=== PATIENT | female | born 1985 | race Caucasian/White ===

== ENCOUNTER 2017-03-27 18:39 | Inpatient (IN) | payer BC ==
[2017-03-27] MEDS ORDERED: Lactated Ringers 500 ML IV ONE (21:32)
[2017-03-27] MEDS ORDERED: Acetaminophen 325 MG Tab PO PRN (21:32)
[2017-03-27] MEDS ORDERED: Misoprostol 400 MCG (4 X 100 MCG TAB) RECTAL PRN (21:32)
[2017-03-27] MEDS ORDERED: Lidocaine 1% 30 ML SDV INJECT PRN (21:32)
[2017-03-27] MEDS ORDERED: Carboprost Tromethamine 250 MCG/1 ML Amp IM PRN (21:32)
[2017-03-27] MEDS ORDERED: Ondansetron 4 MG/2 ML SDV IV PRN (21:32)
[2017-03-27] MEDS ORDERED: Sodium Chloride 0.9% 10 ML Syringe FLUSH PRN (21:32)
[2017-03-27] MEDS ORDERED: Methylergonovine 0.2 MG/1 ML Amp IM PRN (21:32)
[2017-03-27] MEDS ORDERED: Oxytocin/Normal Saline 30 UNIT/500 ML BAG IV SCH (21:45)
[2017-03-28] MEDS: Lactated Ringers 1,000 ML IV SCH ×6 (01:57→22:30)
[2017-03-28] MEDS ORDERED: fentaNYL 100 MCG/2 ML SDV IVPUSH ONE (04:12)
--- NOTE | 2017-03-28 05:46 | HP ---
HISTORY OF PRESENT ILLNESS: This patient is a very pleasant 31-year-old 1, para 0 patient who has an JUSTIN of 03/27/2017, and she is at 40 weeks' gestation when she enters the hospital for observation for possible early labor. She did come in early in the evening on 03/27/2017 with contractions about every 3 to 4 minutes, mostly of mild quality. Her bag of lira was intact. heart tones were category 1. The contractions did appear to gradually get stronger, and her cervix was 3 cm dilated, 80% effaced, and vertex at -2 station on the initial examination by the nurses. The patient did dilate a bit further a couple of hours later and was up to 4 cm dilated. Her contractions were a bit closer and stronger, and it was felt that the patient was in true active labor, and she was admitted. The patient has done well through the night, although when she made it to 5 cm of dilatation with her bag of lira intact, she was at this level for approximately 2-1/2 to 3 hours. I did evaluate her and perform history and physical and amniotomy at 3:45 this morning on 03/28/2017. My repeat cervical examination at that time showed her to still be at 5 to possibly 5+ cm dilated with the vertex at 0 station and the bag of lira intact and 100% effaced. heart tones remained at category 1. Amniotomy was performed. This does give a fair amount of fluid, and it does appear to have a brown color, which may suggest old dark meconium possibly. There are nice accelerations of the heart tones with scalp stimulation. Also as it pertains to her course, it has been quite uncomplicated. Her blood type is O negative, and she is GBS negative. Please see the EHR for the remainder of her record. PAST MEDICAL HISTORY: She denies any knowledge of heart, lung, liver, or kidney disease. ALLERGIES: She does report many years ago as a very young girl that she may have had a rash to ampicillin and penicillins. MEDICATIONS: At present, vitamins. PREVIOUS SURGERY: None. FAMILY HISTORY: Noncontributory. SOCIAL HISTORY: She is and here with her magui. She is a nonsmoker and does not use alcohol. PHYSICAL EXAMINATION: Vital Signs: Admission blood pressure was 132/84, pulse 78. HEENT: The sclerae are nonicteric. Lungs: Clear to A. Heart: Regular rhythm without murmur. Abdomen: Gravid with estimated weight 7 pounds 12 ounces. heart tones remain category 1. Cervix: Cervical examination as described above was 5 to 5+ cm dilated with vertex at 0 station and 100% effacement when the amniotomy was done between 3:45 and 4:00 this morning and brown, old dark meconium is seen. heart tones remain category 1. Clinical pelvimetry suggests some narrowing of the pubic arch and suggestion of borderline pelvis at the mid plane and the outlet. Extremities: Negative. Neurologic: Grossly intact. IMPRESSION: We have had a thorough discussion with the patient and her . Amniotomy has been performed to see if we can shorten her labor and see further progress of labor. We will watch her course of progress of labor very closely. I do anticipate spontaneous vaginal delivery, but we will keep in mind the slight possibility of future section depending upon her clinical course of labor. All of their questions have been answered. Please see the admission laboratory data. [facility] /[id number]
[2017-03-28] MEDS ORDERED: fentaNYL 100 MCG/2 ML SDV ONE (07:03)
--- NOTE | 2017-03-28 07:28 | PCM.SN ---
- Free Text/Narrative Note: Intrathecal. Sitting position, sterile prep and drape. 1 % lidocaine w bicarb for skinwheal to L2 L3 interspace. Introducer, 24 ga pencan x 1. Pos CSF, neg heme, neg parasthesia. Epi wash, 20 mcg PF sufenta, 30 mcg pf fentanyl, o.4 ml pf ns and 6 mg of 0.75% pf bupivacaine injected after CSF aspiration. Pt to R lateral position. Procedure time 0705 to 49312
[2017-03-28] MEDS ORDERED: Oxytocin/Normal Saline 60 UNIT/1,000 ML BAG ONE (09:01)
[2017-03-28] MEDS ORDERED: Citric Acid/Sodium Citrate Solution 30 ML Cup PO ONE (09:02)
[2017-03-28] MEDS ORDERED: Rocuronium 50 MG/5 ML Vial ONE (09:03)
[2017-03-28] MEDS ORDERED: Succinylcholine 200 MG/10 ML MDV ONE (09:03)
[2017-03-28] MEDS: ceFAZolin 2 GM in Premix Bag 1 BAG IV ONE ×2 (09:16→23:17)
[2017-03-28] MEDS ORDERED: Bupivacaine 0.5% 10 ML SDV ONE (09:43)
[2017-03-28] MEDS ORDERED: Bupivacaine 0.5% 10 ML SDV INJECT ONE (10:19)
[2017-03-28] MEDS ORDERED: Ketorolac 30 MG/ML SDV ONE (10:44)
[2017-03-28] MEDS ORDERED: Dexamethasone 4 MG/ML SDV ONE (10:44)
[2017-03-28] MEDS ORDERED: Ondansetron 4 MG/2 ML SDV ONE (10:44)
[2017-03-28] MEDS ORDERED: Misoprostol 400 MCG (4 X 100 MCG TAB) RECTAL PRN (13:12)
[2017-03-28] MEDS ORDERED: Methylergonovine 0.2 MG/1 ML Amp IM PRN (13:12)
[2017-03-28] MEDS ORDERED: Carboprost Tromethamine 250 MCG/1 ML Amp IM ONE (13:12)
[2017-03-28] MEDS ORDERED: ePHEDrine 50 MG/ML SDV IVPUSH PRN (13:12)
[2017-03-28] MEDS ORDERED: Acetaminophen 325 MG Tab PO PRN (13:12)
[2017-03-28] MEDS ORDERED: diphenhydrAMINE 50 MG/ML SDV IVPUSH PRN (13:12)
[2017-03-28] MEDS ORDERED: Acetaminophen/oxyCODONE 325-5 MG Tab PO PRN (13:12)
[2017-03-28] MEDS ORDERED: Naloxone 2 MG/2 ML Syringe IVPUSH PRN (13:12)
[2017-03-28] MEDS ORDERED: Ondansetron 4 MG/2 ML SDV IV PRN (13:12)
[2017-03-28] MEDS ORDERED: Lactated Ringers 1,000 ML IV SCH (13:15)
[2017-03-28] MEDS: Ketorolac 30 MG/ML SDV IVPUSH SCH ×2 (16:25→22:32)
[2017-03-28] MEDS: Simethicone 80 MG Tab.Chew PO PRN (16:31)
[2017-03-28] MEDS: Docusate Sodium 100 MG Cap PO PRN (16:31)
[2017-03-29] MEDS: Ketorolac 30 MG/ML SDV IVPUSH SCH (04:42)
[2017-03-29] MEDS: Simethicone 80 MG Tab.Chew PO PRN ×3 (08:02→21:46)
[2017-03-29] MEDS: Docusate Sodium 100 MG Cap PO PRN ×2 (08:02→21:45)
[2017-03-29] MEDS: Prenatal Multivitamin with Calcium/Folic Acid/Iron Tab PO SCH ×2 (08:02→08:03)
--- NOTE | 2017-03-29 09:19 | OR ---
DATE: 03/28/2017 PREOPERATIVE DIAGNOSIS: Term with non-reassuring heart tone pattern and borderline pelvis. OPERATION PERFORMED: Primary section, low transverse, and biopsy of left ovarian lesion. POSTOPERATIVE DIAGNOSIS: Term with non-reassuring heart tone pattern and borderline pelvis with apparent left ovarian lesion. BRIDGE INSPECTOR SURGEON: Gregoria Llanos MD COMPLICATIONS: None. ESTIMATED BLOOD LOSS: 700 mL of blood and fluid. The patient also is known to have meconium-stained fluid. DESCRIPTION: The patient was thoroughly counseled as we discussed the recommendation for section. The goals and the reasons for the procedure were thoroughly discussed with the patient, and all of her questions were answered. She and her significant other, Tres, did agree to and consent to the procedure. We did thoroughly discuss with them the slight possibility of complications and adverse outcomes with any operative procedure of course. The patient had done well during the course of her labor, although during a period of about 30 to 45 minutes, she began to have some more variable decelerations. These variable deceleration did progressively worsen, and about 4 minutes after she started pushing, they became more pronounced, and the recommendation was made to proceed with stat section. Some of the heart tones went down into the 70 range and several of them were prolonged. Then, there was recovery back up into the 110 and one teens range at times. Moderate variability was present. The patient was completely dilated, but with the vertex not going below +2 station, and the baby appeared to possibly be occiput posterior. In the operating room, heart tones were documented 2 different times by the nurses before we did the expedited prep of the abdomen. Anesthesia was able to perform expediently a quick spinal anesthesia. The patient's prep was expedited as mentioned above, and then a Pfannenstiel incision was made in the skin. This was carried down through the deeper layers with a clean knife and the peritoneum was now entered in the usual fashion. The bladder flap was developed with the use of sharp and blunt dissection. At this time, a low transverse uterine incision was made with the bandage scissors, and a viable male was in the occiput posterior position, and I did see a loop of cord between the baby's face and the uterine wall where evidently compression was taking place. The baby's head was brought up from rather deep in the pelvis and immediately suctioned upon delivery because of the meconium-stained fluid. This baby boy had good scores of 8 and 9 and the weight was later reported as 7 pounds and 13.8 ounces. He had good muscle tone and good color also at delivery of course. A segment of cord blood was obtained for pH testing. After the baby was delivered, the placenta was manually delivered from the uterine cavity in the uterine cavity was carefully wiped clean with moist laparotomy sponges. The first layer of the uterus was closed with 0 Vicryl continuous interlocking suturing. A second Lembert imbricating layer was now placed on top of this. This gave adequate hemostasis. The right tube and ovary had a normal appearance. On the left side, however, an apparent enlarged ovary or ovarian cystic lesion was identified. This measured 7 cm x 4.5 to 5 cm in dimensions. This was a smooth lesion that was somewhat indurated and hard. There were not any papillary excrescences or nodules or seeding on the smooth surface of the lesion. Also, the parietal peritoneal surfaces were closely inspected, and there was not any seeding or implants on the parietal peritoneum in the pelvic cavity, including the left pelvic gutter and the right pelvic gutter are negative. Also, there is no seeding or lesions whatsoever on the anterior parietal peritoneum. The omentum is also closely inspected until found to be totally within normal limits. The liver edge was also palpated and was smooth and no induration or masses. The right kidney was palpated and found to be normal in its retroperitoneal position. No evidence of any seedlings or implants were found; therefore, anywhere in the abdominal cavity or pelvic cavity. I do suspect that this is a benign lesion of apparently the left ovary, possibly this could represent a luteoma of the ovary or possibly a benign cystic teratoma or possibly a large fibroma of the ovary. Further postoperative testing and evaluation will be done of course. We did take a wedge resection biopsy of this lesion in the left adnexal area. This will be submitted to pathology of course. The lesion was hemostatic and did not need any suturing in the area that we biopsied. Please see the intraoperative photographs that we have also taken of this lesion. Now, the pelvic cavity was copiously irrigated with normal saline and carefully suctioned dry. The primary section site, and incision was closely inspected and remained hemostatic. The bladder flap peritoneum re-approximates nicely on its own without suturing. Now, all of the lap pads were removed, and lap pad count was reported as normal. The peritoneum was reapproximated with 2-0 chromic continuous suturing. Now, the rectus fascia was closed with 0 Vicryl continuous suturing using a separate strand of suture for the left and right sides of the incision respectively. The subcutaneous space was irrigated at this time and then sutured with 3-0 plain gut. The subcutaneous space was now infiltrated with 0.5% Marcaine using 10 mL for extra analgesic support. Abbey were now applied to the skin. The needle, sponge, and instrument count was reported as correct. Estimated blood and fluid loss from the procedure was approximately 700 mL. Kilpatrick catheter was draining clear urine at all times. The patient tolerated the procedure well and went to the recovery room in good condition. [facility] /[id number]
--- NOTE | 2017-03-29 09:44 | PCM.SN ---
- Free Text/Narrative Note: Post op. Pt alert and oriented. VSS. Pt denies [place], backache, parasthesias or nausea. Tolerating PO well, Pain controlled. Ambulating w/o difficulty. No anesthesia concerns noted.
[2017-03-29] MEDS: Acetaminophen/oxyCODONE 325-5 MG Tab PO PRN ×2 (11:40→16:24)
[2017-03-29] MEDS: Ibuprofen 800 MG Tab PO PRN ×2 (13:20→21:46)
[2017-03-29] MEDS ORDERED: fentaNYL 100 MCG/2 ML SDV ITHECAL ONE (13:41)
[2017-03-29] MEDS ORDERED: Ondansetron 4 MG/2 ML SDV IV ONE (13:42)
[2017-03-29] MEDS ORDERED: Bupivacaine 0.5% 10 ML SDV INJECT ONE (13:42)
[2017-03-29] MEDS ORDERED: Morphine PF 1 MG/ML Amp IVPUSH ONE (13:42)
[2017-03-29] MEDS ORDERED: fentaNYL 100 MCG/2 ML SDV IV ONE (13:42)
[2017-03-29] MEDS ORDERED: ePHEDrine 50 MG/ML SDV IV ONE (13:42)
[2017-03-29] MEDS ORDERED: Dexamethasone 4 MG/ML SDV IV ONE (13:42)
[2017-03-29] MEDS ORDERED: Oxytocin/Normal Saline 30 UNIT/500 ML BAG IV ONE (13:42)
[2017-03-29] MEDS ORDERED: Ketorolac 30 MG/ML SDV IVPUSH ONE (13:42)
[2017-03-29] MEDS ORDERED: Lactated Ringers 1,000 ML IV ONE (13:42)
[2017-03-30] MEDS: Acetaminophen/oxyCODONE 325-5 MG Tab PO PRN ×5 (01:42→23:22)
[2017-03-30] MEDS: Docusate Sodium 100 MG Cap PO PRN ×2 (08:25→23:22)
[2017-03-30] MEDS: Prenatal Multivitamin with Calcium/Folic Acid/Iron Tab PO SCH (08:25)
[2017-03-30] MEDS: Ibuprofen 800 MG Tab PO PRN ×3 (08:25→23:38)
[2017-03-30] MEDS: Simethicone 80 MG Tab.Chew PO PRN (23:22)
[2017-03-31] MEDS: Acetaminophen/oxyCODONE 325-5 MG Tab PO PRN ×2 (04:42→09:56)
[2017-03-31] MEDS: Docusate Sodium 100 MG Cap PO PRN (08:03)
[2017-03-31] MEDS: Ibuprofen 800 MG Tab PO PRN (08:03)
[2017-03-31] MEDS: Prenatal Multivitamin with Calcium/Folic Acid/Iron Tab PO SCH (08:03)
--- NOTE | 2017-04-01 07:08 | PN ---
DATE: 03/29/2017 SUBJECTIVE: Tracey is doing well today. She did rest fairly well last night. She denies any unusual pain. She is tolerating diet this morning. She also has been ambulating earlier. In general she is doing very well. OBJECTIVE: Vital Signs: All within normal limits including afebrile. Her hemoglobin is 9.8 this morning. Her WBC is still moderately elevated up to 18,200. She did have a WBC in the range of 16,000 yesterday and we have attributed that to the stress of her labor and the stress of surgery. There was not any foul lochia drainage. Gastrointestinal: Her abdomen is soft and only slightly tender near the incisional area. The dressing is dry. There is negative CVA tenderness. Extremities: Reveal negative Homans sign and there is not any calf or thigh tenderness palpated. ASSESSMENT: Stable course post section. We did review everything again from the operative report with her this morning. Her left adnexal lesion path report is pending. Quite possibly this could represent left ovarian lesion, either benign cystic teratoma, luteoma, fibroma, or possibly if it is not ovarian tissue, it could be leiomyoma. PLAN: She will gradually increase her ambulation as tolerated and also gradually increase her fluid intake and nutritional intake. Her hemoglobin is at 9.8, and we will begin her on oral iron. I will thoroughly discuss her with Dr. Dukes who is on-call and will be rounding on her this weekend and likely discharging her on Saturday. I will be happy to dictate all of the essentials for her discharge summary when I am back on Saturday, her pathology report is still pending. I also gave her the routine post instructions today. Possibly, Dr. Dukes will give her prescription for Percocet, etc., if she wishes on the day of discharge. I note that the baby has an appointment to see Dr. Cage on 04/02. Possibly Dr. Cage would also be removing the guille and applying Steri-Strips at that time. If Dr. Cage does not choose to remove the guille and Steri-Strips, I will be very happy to remove them when I am also in the office on Saturday, 04/02. At any rate, even if Dr. Cage does see the patient, I will be happy to visit with the patient and see her as well. [facility] /[id number]
--- NOTE | 2017-04-01 09:31 | PN ---
DATE: 03/31/2017 Postoperative day #3. SUBJECTIVE: The patient is tolerating p.o., ambulating, urinating, passing flatus, and requesting to discharge. OBJECTIVE: Vital Signs: Last set of vitals updated and listed in chart include a temperature of 97.5, heart rate 72, blood pressure 103/66, and respiratory rate 16. Lungs: Clear to auscultation bilaterally. Heart: S1 and S2. Regular rate and rhythm. Abdomen: Firm uterus -1 below umbilicus. Skin: Incision appears dry and intact with guille intact. Extremities: Trace pedal edema. No calf pain. LABORATORY DATA: Labs, on 03/29, revealed a white cell count 18.2, hemoglobin 9.8, and platelets 195 with maternal bleed being negative. ASSESSMENT: Postoperative day #3, status post primary low transverse due to nonreassuring heart tones, complicated by left adnexal mass with biopsies taken. Dr. Saunders is going to follow with this. PLAN: I did discuss with patient the discharge instructions. She is going to follow up on Saturday, the , with Dr. Cage, with her baby. I did discuss with her in the interim the reasons to return or go to the emergency room as well as the importance of followup and ramifications of not doing so, and reasons to return or go to the emergency room with regard to her baby. Dr. Saunders will be completing the discharge summary. Please see his orders for further details. Discharge evaluation noted as above. [facility] /[id number]
--- NOTE | 2017-04-01 09:41 | PN ---
DATE: 03/30/2017 SUBJECTIVE: The patient has been tolerating p.o., ambulating, urinating, and passing flatus. OBJECTIVE: Vital Signs: Last set of vitals are updated and listed in the chart; temperature 97.7, heart rate 68, blood pressure 98/46, respiratory rate 16. Lungs: Clear to auscultation bilaterally. Heart: S1 and S2. Regular rate and rhythm. Abdomen: Firm uterus at approximately umbilicus. Extremities: Trace pedal edema. No calf pain. ASSESSMENT: 1. Postoperative day #2, status post primary low transverse with noted left adnexal mass biopsy taken by Dr. Saunders and will be followed closely thereafter. 2. Anemia of acute blood loss. Hemoglobin dropping from 11.3 to 9.8. Yesterday, her was at hemoglobin 9.8. We will continue to follow clinically and closely. The patient is asymptomatic. PLAN: I did discuss with patient the potential discharge tomorrow, and we will follow closely. The patient understands and agrees the above treatment plan. [facility] /[id number]
--- NOTE | 2017-04-01 10:14 | PN ---
DATE: 03/31/2017 DISCHARGE MEDICATIONS: Discharge medications will include Percocet 5/325 one to two q.6 hours p.r.n., #30, no refills. Discussed the use of this medication, adverse and wanted effects, as well as precautions while driving. Iron sulfate 325 b.i.d. x6 weeks. She can use [id number] Tylenol and ibuprofen as well. [facility] /[id number]
--- NOTE | 2017-04-02 08:30 | DISCH ---
HISTORY OF PRESENT ILLNESS: This patient is a 31-year-old 1, now para 1 patient, who was followed during the by Dr. Cage. The patient did enter the hospital on 03/27 in early labor. She was at term or 40 weeks' gestation. Her course has been quite uncomplicated. She is Rh negative, unsensitized and was group B strep negative for the . She did gradually progress on in labor. Please see my dictated history and physical as well as dictated operative report. The patient essentially did develop non- reassuring heart tone patterns in the form of deep and occasionally prolonged variable decelerations. The patient was complete and pushing at this time, although the vertex was not below +2 station, and the patient is also felt to have a borderline pelvis. She also had meconium-stained fluid. Because we knew she was not going to be able to push the baby out in the relatively near future, emergency section was recommended. We did proceed on with emergency section in the operating room, and the patient did have a viable baby boy who had scores of 8 and 9 and weight was later reported as 7 pounds 13.8 ounces. Primary section was performed. Also intraoperatively, we did notice a left adnexal mass that measured up to 7.5 cm in its longest dimension. Possibly, this could represent a luteoma of the ovary, a fibroma of the ovary, a benign cystic teratoma or other lesion. If it is not of ovarian origin, it also could be a possible leiomyoma. A wedge section biopsy was performed intraoperatively and that final pathology report is still pending. Please refer to our dictated operative report as mentioned above. The patient has done well in the postoperative period. She was also followed in my absence by Dr. Dukes over the weekend and discharged home on Saturday, 03/31. Please see his preliminary written discharge summary. The patient has remained stable. Her discharge hemoglobin was 9.8. Discharge medications consisted of Colace p.r.n. and ibuprofen p.r.n., and she also will take vitamins and oral iron. Dr. Dukes has given her a prescription for Percocet 5/325 mg 1 every 4 to 6 hours p.r.n. Other discharge instructions consisted of progressive ambulation every day and to avoid any heavy lifting or strenuous physical activity for the next 6 weeks. She will call us at once if any questions or problems whatsoever or if she develops any fever, excess pain, excess bleeding, or breast, chest, or extremity problems of course. She will have healthy, well-balanced nutritional measures at home. Her next followup appointment will be this coming Saturday when she brings her baby to see Dr. Cage in the office. Possibly at that time, either Dr. Cage will remove the guille and apply Steri-Strips or I will be available for that as well. FINAL DIAGNOSES: 1. Term , delivered. 2. Non-reassuring heart tone pattern. 3. Meconium-stained fluid. 4. Occiput posterior position. 5. Borderline pelvis. 6. Left adnexal mass with pathology report pending. OPERATIONS AND PROCEDURES: Primary section, low transverse and wedge section biopsy of left adnexal lesion by Dr. John Saunders. The patient did ask me during the hospitalization if she should have a repeat section or if there is a possibility of vaginal in the future. I did thoroughly discuss all of these matters with her, and because of the occiput posterior position that happened to occur with this and because of the fact that she does have a borderline pelvis and also depending upon what the size of the next would be, I did recommend that repeat section be considered. If, however, she absolutely was 100% certain she wanted to try vaginal trial of labor, she would be counseled regarding the risks and benefits and possibility of repeat section ultimately being necessary if there was an unsuccessful trial of labor. We also discussed the very slight possibility of uterine rupture and distress, etc. Possibly, the patient would be permitted to have a vaginal trial of labor in [place] if she absolutely insisted on it. [facility] /[id number]
== END 2017-03-31 12:09 | disposition home or self-care (01) | DRG 540 ==
LOC: EEVIPCON → DL.OBCHECK 18:39 → DL.OB 20:58 → OBSVTOIN 03-28 09:37
PROVIDERS: ADMIT Family Medicine; ATTEND Family Medicine
PROC: 10D00Z1 Extraction of Products of Conception, Low, Open Approach (ICD-10-PCS; principal; 2017-03-28)
PROC: 10907ZC Drainage of Amniotic Fluid, Therapeutic from Products of Conception, Via Natural or Artificial Opening (ICD-10-PCS; 2017-03-28)
PROC: 0UB10ZX Excision of Left Ovary, Open Approach, Diagnostic (ICD-10-PCS; 2017-03-28)
DX: O76 Abnormality in fetal heart rate and rhythm complicating labor and delivery (principal); Z3A.40 40 weeks gestation of pregnancy; Z37.0 Single live birth; O69.2XX0 Labor and delivery complicated by other cord entanglement, with compression, not applicable or unspecified; O34.83 Maternal care for other abnormalities of pelvic organs, third trimester; N83.202 Unspecified ovarian cyst, left side; O99.02 Anemia complicating childbirth; D62 Acute posthemorrhagic anemia; O32.8XX0 Maternal care for other malpresentation of fetus, not applicable or unspecified; O65.1 Obstructed labor due to generally contracted pelvis
CPT/HCPCS: 36415; 51702; 85027; 85461; 86850; 86900; 86901; A9270-GY; J0690; J1100; J1885; J2274; J2405; J2590; J2790; J3010; J7120

== ENCOUNTER 2019-11-09 09:53 | Inpatient (IN) | payer BC ==
[~2019-11-09 09:53] MED LIST: Lactated Ringers 1,000 ML IV SCH; Oxytocin/Normal Saline 30 UNIT/500 ML BAG IV SCH; Sodium Chloride 0.9% 10 ML Syringe FLUSH PRN; Tranexamic Acid 1,000 MG in Sodium Chloride 0.9% 100 ML IV PRN; ceFAZolin 2 GM in Premix Bag 1 BAG IV ONE
[2019-11-09] MEDS ORDERED: Citric Acid/Sodium Citrate Solution 30 ML Cup PO ONE (10:00)
[2019-11-09] MEDS ORDERED: Oxytocin/Normal Saline 60 UNIT/1,000 ML BAG ONE (10:46)
[2019-11-09] MEDS: Lactated Ringers 1,000 ML IV SCH ×4 (11:17→23:07)
[2019-11-09] MEDS ORDERED: diphenhydrAMINE 50 MG/ML SDV IVPUSH PRN (14:35)
[2019-11-09] MEDS ORDERED: Misoprostol 400 MCG (4 X 100 MCG TAB) RECTAL PRN (14:35)
[2019-11-09] MEDS ORDERED: Naloxone 2 MG/2 ML Syringe IVPUSH PRN (14:35)
[2019-11-09] MEDS ORDERED: Acetaminophen 325 MG Tab PO PRN (14:35)
[2019-11-09] MEDS ORDERED: Ondansetron 4 MG/2 ML SDV IVPUSH PRN (14:35)
[2019-11-09] MEDS ORDERED: Carboprost Tromethamine 250 MCG/1 ML Amp IM PRN (14:35)
[2019-11-09] MEDS ORDERED: ePHEDrine 50 MG/ML SDV IVPUSH PRN (14:35)
[2019-11-09] MEDS ORDERED: Methylergonovine 0.2 MG/1 ML Amp IM PRN (14:35)
[2019-11-09] MEDS ORDERED: Lactated Ringers 1,000 ML IV SCH (14:45)
[2019-11-09] MEDS: Simethicone 80 MG Tab.Chew PO SCH ×2 (17:36→22:47)
[2019-11-09] MEDS: Ketorolac 30 MG/ML SDV IVPUSH SCH (19:12)
[2019-11-09] MEDS: Docusate Sodium 100 MG Cap PO PRN (22:47)
--- NOTE | 2019-11-09 23:33 | PCM.HPR ---
H & P Addendum review - H & P Addendum Review Date of Original H & P: 11/06/19 Date Reviewed: 11/09/19 Time Reviewed: 10:45 Patient was Examined: No Changes
--- NOTE | 2019-11-09 23:41 | PCM.PRNOTE ---
- Free Text/Narrative Note: Section Operative Report Date of Surgery: 11/09/2019 Surgeon: Elizabeth Cage MD Production Line Operator: Gustabo Dukes MD Pre-Operative Diagnosis: at 39w0d History of section, declines Post-Operative Diagnosis: Same Procedure Performed: Repeat low transverse section Anesthesia: Spinal EBL: 700 mL IVF: 1300 mL Drains: Kilpatrick catheter with 250 mL of urine output Specimens: None Complications: None apparent Findings: Normal uterus, tubes, and ovaries. Left ovary noted to be adhered to the peritoneum. Indication and Consent: The patient presented to floor today for scheduled at term due to hx of prior and desire for elective repeat . The patient understood that the risks of section include, but are not limited to, visceral or vascular injury, infection, blood loss and need for blood transfusion, prolonged hospitalization, and reoperation. The patient again stated understanding and desired to proceed. All questions were answered. Procedure in Detail: The patient was taken to the operating room where spinal anesthesia was placed and found to be adequate. 2 grams of cefazolin (Ancef) were given for infection prophylaxis. She was then prepped and draped in routine fashion in dorsal supine position with a left suarez tilt. Kilpatrick catheter and pneumoboots were placed. A Pfannenstiel skin incision was made with a scalpel. The incision was carried down to the fascia sharply. The fascia was incised and extended laterally. The superior aspect of the fascia was grasped with Cathy clamps; the underlying rectus muscle and pyramidalis was dissected off with sharp and blunt technique. In a similar fashion, the inferior aspect of the fascia was elevated with Cathy clamps and the rectus muscle was dissected off. Hemostasis was achieved with the Bovie. The rectus musculature was in the midline down to the level of the pubic symphysis. Pre-peritoneal fatty tissue was bluntly dissected to expose the peritoneum. The peritoneum was found to be free of adherent bowel or bladder tissue and entered bluntly. The peritoneal opening was then extended superiorly and inferiorly to the bladder reflection with good visualization of the bladder. At this time, a mass just above the left side of the fundus was noted. Careful inspection revealed this to be the left ovary. The ovary appeared to be normal with multiple adhesions to the peritoneum. Due to the adherent ovary, Emanuel retractor was not used. Rich and bladder blade were inserted. Intraabdominal survey revealed scant, clear peritoneal fluid and thinned-out lower uterine segment. The bladder blade was repositioned to keep the bladder out of the operative field. The lower uterine segment was incised with a scalpel. The amniotic sac was ruptured with an Allis clamp and clear fluid was noted. The uterine incision was extended bluntly with lateral and upward traction. The fetus was in cephalic position. The head was elevated out of the maternal pelvis with special attention paid to avoid using the uterine incision as a fulcrum. Gentle fundal pressure was applied once the head was brought into the incision. A Kiwi vacuum was applied to help with delivery of the head. The infant was delivered with minimal difficulty. Bulb suctioning of the infant's nose and mouth was performed on the operative field. Cord blood was collected.The cord was clamped and cut in standard fashion, and the was handed over to the awaiting nursery staff. IV oxytocin was initiated to facilitate uterine contractions. The placenta was delivered intact with manual message of the uterine fundus along with gentle cord traction. The uterus was not exteriorized due the the presence of the adherent ovary. The inside of the uterus was gently wiped with a lap sponge to assure complete removal of remaining products of conception. The uterine incision was closed with 0 -Vicryl suture in a running locked fashion. A second imbricating layer of 0-Monocryl was also placed. The incision was inspected and hemostasis was achieved. The blood clots and fluid were wiped out of the abdomen and pelvis with moist laparotomy sponges. The uterine incision was re-inspected along with all other incised surfaces and good hemostasis was confirmed. The Rich and bladder blade were removed. Peritoneum was reapproximated with 2 sutures, taking care to avoid the left ovary. The fascia was then closed with 2-0 looped PDS suture with care not to include any underlying abdominal contents. The skin was closed with 4-0 Vicryl suture on a Macho needle in a subcuticular fashion. Sponge and instrument counts were reported as correct times two. Pt tolerated procedure well and was taken to PACU in stable condition. Due to the presence of the adherent ovary, I do recommend that any future sections be performed at a larger facility with [employer] available if possible. Elizabeth Cage MD
--- NOTE | 2019-11-09 23:46 | PCM.DEL ---
L & D Note - General Info Date of Service: 11/09/19 Mother's Due Date: 11/13/19 - Delivery Note Delivery Outcome: Livebirth Infant Delivery Method: Repeat Infant Delivery Mode: Vacuum Extraction Presentation: Vertex Nuchal Cord: Present, Reduced Anesthesia Type: Spinal Amniotic Fluid Description: Clear Cord: 3 Vessels Estimated Blood Loss: 700 : Bulb Syringe, Stimulated, Warmed, Warmer Used Score 1 min: 8 Score 5 min: 9 Delivery Comments (Free Text/Narrative):: Please see procedure note - General Info Date of Service: 11/09/19 - Patient Data Vitals - Most Recent: Last Vital Signs Temp 36.3 C 11/09/19 19:54 Pulse 51 L 11/09/19 19:54 Resp 16 11/09/19 19:54 BP 103/48 L 11/09/19 19:54 Pulse Ox 99 11/09/19 14:00 Weight - Most Recent: 86.183 kg I&O - Last 24 Hours: Intake & Output 11/09/19 11/09/19 11/10/19 14:59 22:59 06:59 Intake Total 634 Output Total 1350 Balance 634 -1350 Lab Results Last 24 Hours: Laboratory Results - last 24 hr 11/09/19 11/09/19 11/09/19 Range/Units 10:20 10:49 10:49 WBC 10.0 (5.0-10.0) 10^3/uL RBC 3.83 L (4.2-5.4) 10^6/uL Hgb 12.0 D (12.0-16.0) g/dL Hct 35.4 L (37.0-47.0) % MCV 92.4 (80-100) fL MCH 31.3 (27.0-34.0) pg MCHC 33.9 (33.0-35.0) g/dL Plt Count 221 (150-450) 10^3/uL Neut % (Auto) 77.7 H (42.2-75.2) % Lymph % (Auto) 15.5 L (20.5-50.1) % [place] % (Auto) 6.2 (2-8) % Eos % (Auto) 0.4 L (1.0-3.0) % Baso % (Auto) 0.2 (0.0-1.0) % SARS-CoV-2 RNA (RT-PCR) Negative (NEGATIVE) Blood Type O NEGATIVE Gel Antibody Screen Positive Med Orders - Current: Current Medications Acetaminophen (Tylenol) 650 mg PO Q6H PRN PRN Reason: mild pain or fever Carboprost Tromethamine (Hemabate Ds) 250 mcg IM ONETIME PRN PRN Reason: Bleeding Diphenhydramine HCl (Benadryl) 25 mg IVPUSH Q6H PRN PRN Reason: Itching or Nausea Docusate Sodium (Colace) 100 mg PO Q12H PRN PRN Reason: Constipation Last Admin: 11/09/19 22:47 Dose: 100 mg Ephedrine Sulfate (Ephedrine Sulfate) 5 mg IVPUSH SEECOMMENT PRN PRN Reason: Other Tranexamic Acid 1,000 mg/ (Sodium Chloride) 110 mls @ 660 mls/hr IV ONETIME PRN PRN Reason: Bleeding Oxytocin/Sodium Chloride (Pitocin In Ns 30 Unit/500 Ml) 30 unit in 500 mls @ 2 mls/hr IV TITRATE LIANET; Protocol Last Titration: 11/09/19 16:05 Dose: 0 munits/min, 0 mls/hr Lactated Ringer's (Ringers, Lactated) 1,000 mls @ 125 mls/hr IV ASDIRECTED LIANET Last Admin: 11/09/19 23:07 Dose: 125 mls/hr Lactated Ringer's (Ringers, Lactated) 1,000 mls @ 500 mls/hr IV .BOLUS [facility] Last Admin: 11/09/19 10:54 Dose: 500 mls/hr Ibuprofen (Motrin) 800 mg PO Q8H PRN PRN Reason: mild pain or fever Ketorolac Tromethamine (Toradol) 15 mg IVPUSH Q6H LIANET Stop: 11/10/19 07:01 Last Admin: 11/09/19 19:12 Dose: 15 mg Methylergonovine Maleate (Methergine) 0.2 mg IM ONETIME PRN PRN Reason: Excessive Vaginal Bleeding Misoprostol (Cytotec) 800 mcg RECTAL ASDIRECTED PRN PRN Reason: Excessive bleeding Naloxone HCl (Narcan) 0.1 mg IVPUSH SEECOMMENT PRN PRN Reason: Respiratory Depression Ondansetron HCl (Zofran) 4 mg IVPUSH Q4H PRN PRN Reason: Nausea/Vomiting Oxycodone/Acetaminophen (Percocet 325-5 Mg) 1 tab PO Q4H PRN PRN Reason: Pain (moderate 4-6) Oxycodone/Acetaminophen (Percocet 325-5 Mg) 2 tab PO Q4H PRN PRN Reason: Pain (moderate 4-6) Prenat Multivit/[place]/Iron/Folic Ac ( Plus Iron) 1 each PO DAILY LIANET Simethicone (Simethicone) 160 mg PO QID LIANET Last Admin: 11/09/19 22:47 Dose: 160 mg Sodium Chloride (Saline Flush) 10 ml FLUSH ASDIRECTED PRN PRN Reason: Keep Vein Open Discontinued Medications Citric Acid/Sodium Citrate (Bicitra Solution) 30 ml PO ONETIME ONE Stop: 11/09/19 10:01 Last Admin: 11/09/19 11:17 Dose: 30 ml Cefazolin Sodium/Dextrose 2 gm (/ Premix) 50 mls @ 100 mls/hr IV ONETIME ONE Stop: 11/09/19 10:01 Last Admin: 11/09/19 11:40 Dose: 100 mls/hr Oxytocin/Sodium Chloride (Pitocin In Ns 30 Unit/500 Ml) Confirm Administered Dose 60 unit in 1,000 mls @ as directed .ROUTE .STK-MED ONE Stop: 11/09/19 10:47 - Problem List & Annotations (1) History of delivery SNOMED Code(s): 718392909 Code(s): Z98.891 - HISTORY OF UTERINE SCAR FROM PREVIOUS SURGERY Status: Acute Current Visit: Yes (2) Rh negative state in antepartum period SNOMED Code(s): 636616299 Code(s): O26.899 - OTH RELATED CONDITIONS, UNSPECIFIED TRIMESTER; Z67.91 - UNSPECIFIED BLOOD TYPE, RH NEGATIVE Status: Acute Current Visit: Yes (3) Anemia in preg-unspec SNOMED Code(s): 50138890 Code(s): O99.019 - ANEMIA COMPLICATING , UNSPECIFIED TRIMESTER Status: Acute Current Visit: Yes (4) care SNOMED Code(s): 901764690, 48340209, 292972280, 468339902 Code(s): Z34.90 - ENCNTR FOR SUPRVSN OF NORMAL , UNSP, UNSP TRIMESTER Status: Acute Current Visit: Yes (5) Status post delivery SNOMED Code(s): 955848601, 979076875 Code(s): Z98.891 - HISTORY OF UTERINE SCAR FROM PREVIOUS SURGERY Status: Acute Current Visit: Yes - Problem List Review Problem List Initiated/Reviewed/Updated: Yes - My Orders Last 24 Hours: My Active Orders 11/09/19 09:32 Sodium Chloride 0.9% [Saline Flush] 10 ml FLUSH ASDIRECTED PRN Tranexamic Acid [Cyklokapron] 1,000 mg Sodium Chloride 0.9% [Normal Saline] 100 ml IV ONETIME Resuscitation Status Routine 11/09/19 09:33 Patient Status [ADT] Routine Notify Provider Vital Signs OB [RC] ASDIRECTED Peripheral IV Care [RC] RT Incentive Spirometry [RC] Vital Signs [RC] 04,08,12,16,20,00,04,08 Peripheral IV Insertion Adult [OM.PC] Routine 11/09/19 09:45 Lactated Ringers [Ringers, Lactated] 1,000 ml IV .BOLUS Lactated Ringers [Ringers, Lactated] 1,000 ml IV ASDIRECTED Oxytocin/Normal Saline [Pitocin in NS 30 UNIT/500 ML] 30 unit in 500 ml IV TITRATE 11/09/19 10:49 ANTIBODY IDENTIFICATION [BBK] Routine RH IMMUNE GLOBULIN [BBK] Routine TYPE AND SCREEN [BBK] Routine WEAK D TEST [BBK] Routine 11/09/19 14:35 Communication Order [RC] PER UNIT ROUTINE Communication Order [RC] PER UNIT ROUTINE Intake and Output [RC] Q8H Notify Provider Intake and Out [RC] ASDIRECTED RT Incentive Spirometry [RC] Q2HWA Urinary Catheter Removal [RC] Per Unit Routine Vital Signs [RC] 00,04,08,12,16,20 Acetaminophen [Tylenol] 650 mg PO Q6H PRN Acetaminophen/oxyCODONE [Percocet 325-5 MG] 1 tab PO Q4H PRN Acetaminophen/oxyCODONE [Percocet 325-5 MG] 2 tab PO Q4H PRN Carboprost Tromethamine [Hemabate DS] 250 mcg IM ONETIME PRN Docusate Sodium [Colace] 100 mg PO Q12H PRN Methylergonovine [Methergine] 0.2 mg IM ONETIME PRN Naloxone [Narcan] 0.1 mg IVPUSH SEECOMMENT PRN Ondansetron [Zofran] 4 mg IVPUSH Q4H PRN diphenhydrAMINE [Benadryl] 25 mg IVPUSH Q6H PRN ePHEDrine [ePHEDrine sulfate] 5 mg IVPUSH SEECOMMENT PRN miSOPROStoL [Cytotec] 800 mcg RECTAL ASDIRECTED PRN Antiembolic Hose [OM.PC] Per Unit Routine Assess Lochia [WOMSER] Per Unit Routine Assess Uterine Involution [WOMSER] Per Unit Routine Breast Pump [WOMSER] Per Unit Routine Sequential Compression Device [OM.PC] Per Unit Routine 11/09/19 14:36 Antiembolic Devices [RC] 11/09/19 17:00 Simethicone 160 mg PO QID 11/09/19 17:13 MATERNAL BLEED, SCREEN [REF] Routine 11/09/19 19:00 Ketorolac [Toradol] 15 mg IVPUSH Q6H 11/09/19 Dinner Clear Liquid Diet [DIET] 11/10/19 07:00 CBC W/O DIFF,HEMOGRAM [HEME] Routine 11/10/19 09:00 Vit with Ca/FA/Iron [ Plus Iron] 1 each PO DAILY 11/10/19 15:00 Ibuprofen [Motrin] 800 mg PO Q8H PRN 11/10/19 Breakfast Regular Diet [DIET] - Assessment Assessment:: 34-year-old now status post repeat section at 39w3d - Plan Plan:: 1. Initiate routine postoperative cares 2. Plans to breastfeed 3. CBC in AM 4. Anticipate discharge 11/12/2019 Elizabeth Cage MD
[2019-11-10] MEDS: Ketorolac 30 MG/ML SDV IVPUSH SCH ×2 (00:59→08:14)
[2019-11-10] MEDS: Prenatal Multivitamin with Calcium/Folic Acid/Iron Tab PO SCH (08:17)
[2019-11-10] MEDS: Docusate Sodium 100 MG Cap PO PRN ×2 (08:18→21:50)
[2019-11-10] MEDS: Simethicone 80 MG Tab.Chew PO SCH ×4 (08:18→21:50)
[2019-11-10] MEDS ORDERED: Oxytocin/Normal Saline 30 UNIT/500 ML BAG IV ONE (13:31)
[2019-11-10] MEDS ORDERED: ePHEDrine 50 MG/ML SDV IV ONE (13:31)
[2019-11-10] MEDS ORDERED: Dexamethasone 4 MG/ML SDV IV ONE (13:31)
[2019-11-10] MEDS ORDERED: Ondansetron 4 MG/2 ML SDV IV ONE (13:31)
[2019-11-10] MEDS ORDERED: Ketorolac 30 MG/ML SDV IVPUSH ONE (13:31)
[2019-11-10] MEDS ORDERED: Lactated Ringers 1,000 ML IV ONE (13:31)
[2019-11-10] MEDS: Acetaminophen/oxyCODONE 325-5 MG Tab PO PRN ×2 (15:28→21:51)
[2019-11-10] MEDS: Ibuprofen 800 MG Tab PO PRN (17:11)
[2019-11-11] MEDS: Ibuprofen 800 MG Tab PO PRN ×3 (00:39→17:39)
[2019-11-11] MEDS: Acetaminophen/oxyCODONE 325-5 MG Tab PO PRN ×3 (04:14→17:40)
[2019-11-11] MEDS: Prenatal Multivitamin with Calcium/Folic Acid/Iron Tab PO SCH (10:26)
[2019-11-11] MEDS: Simethicone 80 MG Tab.Chew PO SCH ×4 (10:26→21:38)
[2019-11-11] MEDS: Docusate Sodium 100 MG Cap PO PRN (10:27)
--- NOTE | 2019-11-11 14:35 | US ---
EXAMINATION: Venous Doppler lower Ext Lt SEX: Female AGE: 34 years CLINICAL HISTORY: 34-year-old female with left leg and calf pain ( section 2 days ago). Rule out DVT left lower extremity. Interpretation: Negative exam. No sign of intraluminal echogenic thrombus and normal compressibility deep veins of the left groin, thigh, knee and calf. Satisfactory augmentation and venous waveforms demonstrated respectively in the peroneal/posterior tibial veins of the left calf, popliteal vein behind the left knee, and proximally within the femoral veins of the left lower extremity. CONCLUSION: No DVT left lower extremity.
[2019-11-12] MEDS: Acetaminophen/oxyCODONE 325-5 MG Tab PO PRN (04:48)
[2019-11-12] MEDS: Simethicone 80 MG Tab.Chew PO SCH (09:20)
[2019-11-12] MEDS: Prenatal Multivitamin with Calcium/Folic Acid/Iron Tab PO SCH (09:20)
--- NOTE | 2019-11-12 10:17 | PCM.PNPP ---
- Patient Data Vital Signs - Most Recent: Last Vital Signs Temp 37.3 C 11/12/19 08:00 Pulse 85 11/12/19 08:00 Resp 18 11/12/19 08:00 BP 99/54 L 11/12/19 08:00 Pulse Ox 100 11/12/19 08:00 Weight - Most Recent: 86.183 kg Lab Results - Last 24 Hours: Laboratory Results - last 24 hr 11/09/19 Range/Units 17:13 Maternal Bleed Neg Med Orders - Current: Current Medications Acetaminophen (Tylenol) 650 mg PO Q6H PRN PRN Reason: mild pain or fever Carboprost Tromethamine (Hemabate Ds) 250 mcg IM ONETIME PRN PRN Reason: Bleeding Diphenhydramine HCl (Benadryl) 25 mg IVPUSH Q6H PRN PRN Reason: Itching or Nausea Docusate Sodium (Colace) 100 mg PO Q12H PRN PRN Reason: Constipation Last Admin: 11/11/19 10:27 Dose: 100 mg Ephedrine Sulfate (Ephedrine Sulfate) 5 mg IVPUSH SEECOMMENT PRN PRN Reason: Other Tranexamic Acid 1,000 mg/ (Sodium Chloride) 110 mls @ 660 mls/hr IV ONETIME PRN PRN Reason: Bleeding Oxytocin/Sodium Chloride (Pitocin In Ns 30 Unit/500 Ml) 30 unit in 500 mls @ 2 mls/hr IV TITRATE LIANET; Protocol Last Titration: 11/09/19 16:05 Dose: 0 munits/min, 0 mls/hr Lactated Ringer's (Ringers, Lactated) 1,000 mls @ 125 mls/hr IV ASDIRECTED LIANET Last Admin: 11/09/19 23:07 Dose: 125 mls/hr Lactated Ringer's (Ringers, Lactated) 1,000 mls @ 500 mls/hr IV .BOLUS LIANET Last Admin: 11/09/19 10:54 Dose: 500 mls/hr Ibuprofen (Motrin) 800 mg PO Q8H PRN PRN Reason: mild pain or fever Last Admin: 11/11/19 17:39 Dose: 800 mg Methylergonovine Maleate (Methergine) 0.2 mg IM ONETIME PRN PRN Reason: Excessive Vaginal Bleeding Misoprostol (Cytotec) 800 mcg RECTAL ASDIRECTED PRN PRN Reason: Excessive bleeding Naloxone HCl (Narcan) 0.1 mg IVPUSH SEECOMMENT PRN PRN Reason: Respiratory Depression Ondansetron HCl (Zofran) 4 mg IVPUSH Q4H PRN PRN Reason: Nausea/Vomiting Oxycodone/Acetaminophen (Percocet 325-5 Mg) 1 tab PO Q4H PRN PRN Reason: Pain (moderate 4-6) Last Admin: 11/10/19 21:51 Dose: 1 tab Oxycodone/Acetaminophen (Percocet 325-5 Mg) 2 tab PO Q4H PRN PRN Reason: Pain (moderate 4-6) Last Admin: 11/12/19 04:48 Dose: 2 tab Prenat Multivit/[place]/Iron/Folic Ac ( Plus Iron) 1 each PO DAILY [facility] Last Admin: 11/12/19 09:20 Dose: 1 each Simethicone (Simethicone) 160 mg PO QID [facility] Last Admin: 11/12/19 09:20 Dose: 160 mg Sodium Chloride (Saline Flush) 10 ml FLUSH ASDIRECTED PRN PRN Reason: Keep Vein Open Discontinued Medications Citric Acid/Sodium Citrate (Bicitra Solution) 30 ml PO ONETIME ONE Stop: 11/09/19 10:01 Last Admin: 11/09/19 11:17 Dose: 30 ml Dexamethasone (Dexamethasone) 8 mg IV .STK-MED ONE Stop: 11/10/19 13:32 Ephedrine Sulfate (Ephedrine Sulfate) 10 mg IV .STK-MED ONE Stop: 11/10/19 13:32 Cefazolin Sodium/Dextrose 2 gm (/ Premix) 50 mls @ 100 mls/hr IV ONETIME ONE Stop: 11/09/19 10:01 Last Admin: 11/09/19 11:40 Dose: 100 mls/hr Oxytocin/Sodium Chloride (Pitocin In Ns 30 Unit/500 Ml) Confirm Administered Dose 60 unit in 1,000 mls @ as directed .ROUTE .STK-MED ONE Stop: 11/09/19 10:47 Oxytocin/Sodium Chloride (Pitocin In Ns 30 Unit/500 Ml) 30 unit in 500 mls @ as directed IV .STK-MED ONE Stop: 11/10/19 13:32 Lactated Ringer's (Ringers, Lactated) 1,000 mls @ as directed IV .STK-MED ONE Stop: 11/10/19 13:32 Ketorolac Tromethamine (Toradol) 15 mg IVPUSH Q6H LIANET Stop: 11/10/19 07:01 Last Admin: 11/10/19 08:14 Dose: 15 mg Ketorolac Tromethamine (Toradol) 30 mg IVPUSH .STK-MED ONE Stop: 11/10/19 13:32 Ondansetron HCl (Zofran) 4 mg IV .STK-MED ONE Stop: 11/10/19 13:32 - Infant Interaction Support Person: - Recovery Exam Fundal Tone: Firm Fundal Level: At Umbilicus Fundal Placement: Midline Lochia Amount: Small Lochia Color: Rubra/Red Perineum Description: Intact, Minimal Bruising/Swelling Episiotomy/Laceration: None Bladder Status: Voiding Urinary Elimination: Indwelling Catheter - Problem List & Annotations (1) History of delivery SNOMED Code(s): 017133609 Code(s): Z98.891 - HISTORY OF UTERINE SCAR FROM PREVIOUS SURGERY Status: Acute Current Visit: Yes (2) Rh negative state in antepartum period SNOMED Code(s): 887291026 Code(s): O26.899 - OTH RELATED CONDITIONS, UNSPECIFIED TRIMESTER; Z67.91 - UNSPECIFIED BLOOD TYPE, RH NEGATIVE Status: Acute Current Visit: Yes (3) Anemia in preg-unspec SNOMED Code(s): 73189268 Code(s): O99.019 - ANEMIA COMPLICATING , UNSPECIFIED TRIMESTER Status: Acute Current Visit: Yes (4) care SNOMED Code(s): 227274026, 16294770, 332668249, 161179435 Code(s): Z34.90 - ENCNTR FOR SUPRVSN OF NORMAL , UNSP, UNSP TRIMESTER Status: Acute Current Visit: Yes (5) Status post delivery SNOMED Code(s): 239689217, 611551466 Code(s): Z98.891 - HISTORY OF UTERINE SCAR FROM PREVIOUS SURGERY Status: Acute Current Visit: Yes - Assessment Assessment:: 34-year-old now status post repeat section at 39w3d - Plan Plan:: 1. Initiate routine postoperative cares 2. Plans to breastfeed 3. CBC in AM 4. Anticipate discharge 11/12/2019 Elizabeth Cage MD
--- NOTE | 2019-11-12 10:18 | PCM.PNPP ---
- Patient Data Vital Signs - Most Recent: Last Vital Signs Temp 37.3 C 11/12/19 08:00 Pulse 85 11/12/19 08:00 Resp 18 11/12/19 08:00 BP 99/54 L 11/12/19 08:00 Pulse Ox 100 11/12/19 08:00 Weight - Most Recent: 86.183 kg Lab Results - Last 24 Hours: Laboratory Results - last 24 hr 11/09/19 Range/Units 17:13 Maternal Bleed Neg Med Orders - Current: Current Medications Acetaminophen (Tylenol) 650 mg PO Q6H PRN PRN Reason: mild pain or fever Carboprost Tromethamine (Hemabate Ds) 250 mcg IM ONETIME PRN PRN Reason: Bleeding Diphenhydramine HCl (Benadryl) 25 mg IVPUSH Q6H PRN PRN Reason: Itching or Nausea Docusate Sodium (Colace) 100 mg PO Q12H PRN PRN Reason: Constipation Last Admin: 11/11/19 10:27 Dose: 100 mg Ephedrine Sulfate (Ephedrine Sulfate) 5 mg IVPUSH SEECOMMENT PRN PRN Reason: Other Tranexamic Acid 1,000 mg/ (Sodium Chloride) 110 mls @ 660 mls/hr IV ONETIME PRN PRN Reason: Bleeding Oxytocin/Sodium Chloride (Pitocin In Ns 30 Unit/500 Ml) 30 unit in 500 mls @ 2 mls/hr IV TITRATE LIANET; Protocol Last Titration: 11/09/19 16:05 Dose: 0 munits/min, 0 mls/hr Lactated Ringer's (Ringers, Lactated) 1,000 mls @ 125 mls/hr IV ASDIRECTED LIANET Last Admin: 11/09/19 23:07 Dose: 125 mls/hr Lactated Ringer's (Ringers, Lactated) 1,000 mls @ 500 mls/hr IV .BOLUS LIANET Last Admin: 11/09/19 10:54 Dose: 500 mls/hr Ibuprofen (Motrin) 800 mg PO Q8H PRN PRN Reason: mild pain or fever Last Admin: 11/11/19 17:39 Dose: 800 mg Methylergonovine Maleate (Methergine) 0.2 mg IM ONETIME PRN PRN Reason: Excessive Vaginal Bleeding Misoprostol (Cytotec) 800 mcg RECTAL ASDIRECTED PRN PRN Reason: Excessive bleeding Naloxone HCl (Narcan) 0.1 mg IVPUSH SEECOMMENT PRN PRN Reason: Respiratory Depression Ondansetron HCl (Zofran) 4 mg IVPUSH Q4H PRN PRN Reason: Nausea/Vomiting Oxycodone/Acetaminophen (Percocet 325-5 Mg) 1 tab PO Q4H PRN PRN Reason: Pain (moderate 4-6) Last Admin: 11/10/19 21:51 Dose: 1 tab Oxycodone/Acetaminophen (Percocet 325-5 Mg) 2 tab PO Q4H PRN PRN Reason: Pain (moderate 4-6) Last Admin: 11/12/19 04:48 Dose: 2 tab Prenat Multivit/[place]/Iron/Folic Ac ( Plus Iron) 1 each PO DAILY [facility] Last Admin: 11/12/19 09:20 Dose: 1 each Simethicone (Simethicone) 160 mg PO QID [facility] Last Admin: 11/12/19 09:20 Dose: 160 mg Sodium Chloride (Saline Flush) 10 ml FLUSH ASDIRECTED PRN PRN Reason: Keep Vein Open Discontinued Medications Citric Acid/Sodium Citrate (Bicitra Solution) 30 ml PO ONETIME ONE Stop: 11/09/19 10:01 Last Admin: 11/09/19 11:17 Dose: 30 ml Dexamethasone (Dexamethasone) 8 mg IV .STK-MED ONE Stop: 11/10/19 13:32 Ephedrine Sulfate (Ephedrine Sulfate) 10 mg IV .STK-MED ONE Stop: 11/10/19 13:32 Cefazolin Sodium/Dextrose 2 gm (/ Premix) 50 mls @ 100 mls/hr IV ONETIME ONE Stop: 11/09/19 10:01 Last Admin: 11/09/19 11:40 Dose: 100 mls/hr Oxytocin/Sodium Chloride (Pitocin In Ns 30 Unit/500 Ml) Confirm Administered Dose 60 unit in 1,000 mls @ as directed .ROUTE .STK-MED ONE Stop: 11/09/19 10:47 Oxytocin/Sodium Chloride (Pitocin In Ns 30 Unit/500 Ml) 30 unit in 500 mls @ as directed IV .STK-MED ONE Stop: 11/10/19 13:32 Lactated Ringer's (Ringers, Lactated) 1,000 mls @ as directed IV .STK-MED ONE Stop: 11/10/19 13:32 Ketorolac Tromethamine (Toradol) 15 mg IVPUSH Q6H LIANET Stop: 11/10/19 07:01 Last Admin: 11/10/19 08:14 Dose: 15 mg Ketorolac Tromethamine (Toradol) 30 mg IVPUSH .STK-MED ONE Stop: 11/10/19 13:32 Ondansetron HCl (Zofran) 4 mg IV .STK-MED ONE Stop: 11/10/19 13:32 - Infant Interaction Support Person: - Recovery Exam Fundal Tone: Firm Fundal Level: At Umbilicus Fundal Placement: Midline Lochia Amount: Small Lochia Color: Rubra/Red Perineum Description: Intact, Minimal Bruising/Swelling Episiotomy/Laceration: None Bladder Status: Voiding Urinary Elimination: Indwelling Catheter - Problem List & Annotations (1) History of delivery SNOMED Code(s): 927895390 Code(s): Z98.891 - HISTORY OF UTERINE SCAR FROM PREVIOUS SURGERY Status: Acute Current Visit: Yes (2) Rh negative state in antepartum period SNOMED Code(s): 682229219 Code(s): O26.899 - OTH RELATED CONDITIONS, UNSPECIFIED TRIMESTER; Z67.91 - UNSPECIFIED BLOOD TYPE, RH NEGATIVE Status: Acute Current Visit: Yes (3) Anemia in preg-unspec SNOMED Code(s): 24902778 Code(s): O99.019 - ANEMIA COMPLICATING , UNSPECIFIED TRIMESTER Status: Acute Current Visit: Yes (4) care SNOMED Code(s): 960786249, 00920305, 094285964, 300189776 Code(s): Z34.90 - ENCNTR FOR SUPRVSN OF NORMAL , UNSP, UNSP TRIMESTER Status: Acute Current Visit: Yes (5) Status post delivery SNOMED Code(s): 981282702, 415025104 Code(s): Z98.891 - HISTORY OF UTERINE SCAR FROM PREVIOUS SURGERY Status: Acute Current Visit: Yes - Assessment Assessment:: 34-year-old now status post repeat section at 39w3d - Plan Plan:: 1. Initiate routine postoperative cares 2. Plans to breastfeed 3. CBC in AM 4. Anticipate discharge 11/12/2019 Elizabeth Cage MD
== END 2019-11-12 13:30 | disposition home or self-care (01) | DRG 540 ==
LOC: DL.OB 09:53 → OBSVTOIN 12:16 → DL.MS 11-11 21:04
PROVIDERS: ADMIT Family Medicine; ATTEND Family Medicine
PROC: 10D00Z1 Extraction of Products of Conception, Low, Open Approach (ICD-10-PCS; principal; 2019-11-09)
DX: O34.211 Maternal care for low transverse scar from previous cesarean delivery (principal); Z37.0 Single live birth; Z3A.39 39 weeks gestation of pregnancy; O69.81X0 Labor and delivery complicated by cord around neck, without compression, not applicable or unspecified; Z28.82 Immunization not carried out because of caregiver refusal
CPT/HCPCS: 36415; 85025; 85027; 85461; 86850; 86870; 86900; 86901; 93971; A9270-GY; J0690; J1100; J1885; J2405; J2590; J2790; J7120; U0002